=== PATIENT | female | born 1975 | race Caucasian/White ===

== ENCOUNTER 2017-12-13 20:05 | Emergency (ER) | payer MEDICAID ==
[~2017-12-13] VITALS: Ht 162.6 cm; Wt 97.1 kg
[2017-12-13 20:08] VITALS: Ht 162.6 cm; Wt 97.1 kg
[2017-12-13 21:54] VITALS: BP 150/85
== END 2017-12-13 21:54 | disposition home or self-care (01) ==
LOC: ED 20:05
DX: S61.210A Laceration without foreign body of right index finger without damage to nail, initial encounter (principal); R03.0 Elevated blood-pressure reading, without diagnosis of hypertension; W26.0XXA Contact with knife, initial encounter; Y93.89 Activity, other specified; Y92.89 Other specified places as the place of occurrence of the external cause; Y99.8 Other external cause status
CPT/HCPCS: 90715; J2001

== ENCOUNTER 2019-01-18 02:10 | Inpatient (IN) | payer MEDICAID ==
[~2019-01-18] VITALS: Ht 162.6 cm; Wt 94.0 kg
[2019-01-18 02:16] VITALS: Ht 162.6 cm; Wt 94.0 kg
[2019-01-18 02:43] LABS: BASOPHIL % 0.6 % (0-2); PLATELET COUNT 391 x10^3mcL (130-400)
[2019-01-18 02:46] LABS: RED CELL DISTRIBUTION WIDTH 21.7 % (11.5-14.5)
--- NOTE | 2019-01-18 02:49 | NUR ---
PATIENT AAOX4 PRESENTS TO THE ED WITH C/O ABD PAIN ALONG WITH N/V X 7 DAYS. BREATHING EVEN AND UNLABORED, PT DENIES FEVER, SKIN WARM, DRY AND INTACT. PT PLACED ON MONITORS FOR FURTHER OBSERVATION. WILL CONTINUE TO MONITOR.
[2019-01-18 02:54] LABS: rbc morphology (normal/abnorm) ABNORMAL (NORMAL); schistocyte (helmet cell) 1+; target cell (codocyte) 1+
[2019-01-18 02:59] LABS: CALCIUM 8.7 mg/dL (8.5-10.1); CARBON DIOXIDE 25.6 mmol/L (21-32); CHLORIDE SERUM 105 mmol/L (98-107); CREATININE SERUM 0.8 mg/dL (0.6-1.0); GFR1 > 60 mL/min; GLUCOSE SERUM 125 mg/dL (74-106); POTASSIUM SERUM 3.3 mmol/L (3.5-5.1); SODIUM SERUM 142 mmol/L (136-145)
[2019-01-18 03:04] LABS: ALKALINE PHOSPHATASE 115 U/L (46-116); ALT/SGPT 24 U/L (14-59); AST/SGOT 25 U/L (15-37); BILIRUBIN TOTAL 0.24 mg/dL (0.20-1.00); TOTAL PROTEIN, SERUM 7.6 g/dL (6.4-8.2)
[2019-01-18 03:05] LABS: ALBUMIN 3.2 g/dL (3.4-5.0); LIPASE 2607 IU/L (73-393)
--- NOTE | 2019-01-18 03:19 | NUR ---
MEDICATED PER MD ORDERS
[2019-01-18 04:59] LABS: microscopic required? NO
[2019-01-18 05:06] LABS: urine erythrocyte NEGATIVE (NEGATIVE)
[2019-01-18 05:39] VITALS: BP 150/82
[2019-01-18 05:39] LABS: CHOLESTEROL/HDL RATIO 3.7; MAGNESIUM 2.3 mg/dL (1.8-2.4); PHOSPHOROUS 3.9 mg/dL (2.5-4.9)
[2019-01-18 06:43] VITALS: BP 117/65
--- NOTE | 2019-01-18 06:45 | NUR ---
RECEIVED PT FROM ER VIA WHEEL CHAIR FROM ED. A/O X4. ESTONIAN SPEAKING. DENIES HEADACHE/DIZZINESS. RESP. EVEN AND UNLABORED. LUNG SOUNDS CLEAR BILAT. ON ROOM AIR, NO ACUTE DISTRESS NOTED. ABD. WITH COMPLAINTS OF ABD. PAIN XI WEEK,ABD. SOFT, NON DISTENDED, BS ACTIVE, NO N/V NOTED. PT STATES PAIN LEVEL,5/10, MEDICATED WITH NORCO PO ORDERED. NPO EXCEPT MEDS MAINTAINED. STARTED ON IVF, NS AT 150ML/HR, INTACT AND INFUSING VIA LT HAND. SKIN WARM AND DRY TO TOUCH, INTACT AND NO EDEMA NOTED. AMBULATORY. ORIENTED TO ROOM AND SURROUNDINGS. BED IN LOW POSITION. SPOUSE AT THE BEDSIDE. CALL LIGHT WITHIN REACH. AFEBRILE AND VITAL SIGNS STABLE. WILL ENDORSE TO INCOMING NURSE.
--- NOTE | 2019-01-18 07:25 | NUR ---
AAO X4.[place]EN[place] MOSTLY.DENIES ANY PAIN/DISCOMFORT.LUNGS CLEAR.PT NON-TELE.IVF NS GOING AT 150 ML/HR INFUSING WELL.ON NPO STATUS TILL SEEN BY . AT BEDSIDE.CALL LIGHT WITHIN REACH.INSTRUCTED TO CALL FOR ANY PAIN/DISCOMFORT.WILL CONTINUE TO MONITOR PT.
[2019-01-18 09:29] VITALS: BP 134/71
[2019-01-18 10:20] LABS: FREE T4 0.9 ng/dL (0.76-1.46)
--- NOTE | 2019-01-18 11:30 | NUR ---
HERE TO SEE PT.PT WILL HAVE LAP THIAGO POSSIBLE OPEN.SIGNED CONSENT.USED TOOL PROFILING MACHINE SET UP OPERATOR PHONE.PT AGREEABLE TO THE PROCEDURE.PRE-OP CHECKLIST DONE.
--- NOTE | 2019-01-18 12:03 | NUR ---
PT WENT DOWN TO SURGERY VIA GUERNEY ACCOMPANIED BY OR DAYANARA, AT BEDSIDE.
--- NOTE | 2019-01-18 14:15 | NUR ---
GAVE MORPHINE 2 MG IVP ORDERED PTN FOR C/O INCISSIONANL PAIN AT 9/10 PAIN SCALE.
--- NOTE | 2019-01-18 14:18 | NUR ---
PT BACK FR.RECOVERY ROOM S/P LAP THIAGO. ABDOMINAL INCISSION X4.CALL LIGHT WITHIN REACH.C/O MILD INCISSIONAL PAIN .V/S STABLE.FAMILY AT BEDSIDE.WILL CONTINUE TO MONITOR PT.
[2019-01-18 14:20] VITALS: BP 119/73
--- NOTE | 2019-01-18 16:09 | NUR ---
GAVE ZOFRAN 4 MG IVP FOR C/O VOMITTING X 1.WILL CONTINUE TO MONITOR PT.
--- NOTE | 2019-01-18 16:12 | NUR ---
GAVE PT MORPHINE 2 MG IVP ORDERED FOR C/O INCISSIONAL PAIN AT 9/10 PAIN SCALE.WILL CONTINUE TO MONITOR PT.
--- NOTE | 2019-01-18 16:42 | NUR ---
RECHECKED PAIN LEVEL.CLAIMS TO FEEL A LOT BETTER.ALSO DENIES ANY NAUSEA.
[2019-01-18 17:08] VITALS: BP 117/75
--- NOTE | 2019-01-18 17:11 | NUR ---
Discount pharmacy card and list to low cost medical clinics given to patient by Param Meredith.
--- NOTE | 2019-01-18 18:27 | NUR ---
NO SIGNIFICANT CHANGE NOTED.WILL ENDORSE TO NEXT SHIFT.
[2019-01-18 20:27] VITALS: BP 159/84
--- NOTE | 2019-01-18 21:00 | NUR ---
PATIENTWITH FAMILY MEMBER,MAINLY KHMER,NEEDS ANTICIPATED.IVF INFUSING.
--- NOTE | 2019-01-18 21:18 | NUR ---
SHIFT REASSESSMENT DONE.PATIENT ALERT AND ORIENTED,MAINLY [place],NEEDS ANTICIPATED.NS AT 60 CC/ HOUR L HAND IV SITE.MEDSURG PATIENT.HAD LAP THIAGO,01/18,ABD BANDAID INTACT.VOIDING.FAMILY AT BEDSIDE,SUPPORTIVE OF CARE.CALL LIGHT IN REACH.ATB SCHEDULED.
--- NOTE | 2019-01-19 02:00 | NUR ---
PATIENT WANTING PAIN SHOT AND GIVEN.IVF INFUSING.BRP,NOT PASSING GAS YET.
[2019-01-19 06:27] VITALS: BP 132/78
[2019-01-19 06:41] LABS: PLATELET COUNT 356 x10^3mcL (130-400)
[2019-01-19 06:50] LABS: RED CELL DISTRIBUTION WIDTH 21.1 % (11.5-14.5)
[2019-01-19 06:55] LABS: CALCIUM 8.2 mg/dL (8.5-10.1); CARBON DIOXIDE 25.1 mmol/L (21-32); CHLORIDE SERUM 105 mmol/L (98-107); CREATININE SERUM 0.7 mg/dL (0.6-1.0); GFR1 > 60 mL/min; GLUCOSE SERUM 120 mg/dL (74-106); PHOSPHOROUS 3.1 mg/dL (2.5-4.9); POTASSIUM SERUM 3.7 mmol/L (3.5-5.1); SODIUM SERUM 139 mmol/L (136-145)
--- NOTE | 2019-01-19 07:55 | NUR ---
RECEIVED PATIENT SLEEPING IN BED, AROUSABLE. PATIENT DENIES PAIN AT THIS TIME. PATIENT DENIES NAUSEA/VOMITING. PATIENT HAS NOT PASSED GAS OR BM AT THIS TIME. BANDAID TO ABDOMEN X4, CDI & NO DRAINAGED NOTED. NS IV INFUSING TO LEFT HAND CDI&PATENT, NO S/S OF INFILTRATION. CALL LIGHT WITIHN REACH, BED IN LOW POSITION, WILL CONTINUE TO MONITOR FOR CHANGES.
[2019-01-19 08:15] LABS: rbc morphology (normal/abnorm) ABNORMAL (NORMAL)
[2019-01-19 09:48] VITALS: BP 154/88
--- NOTE | 2019-01-19 10:27 | NUR ---
PATIENT C/O ABDOMINAL PAIN 12/14, MEDICATED PATIENT WITH NORCO PER PROTOCAL (SEE EMAR), REPOSITIONED PATIENT FOR COMFORT. EDUCATED PATIENT ON PAIN MANAGEMEN, PATIENT VERBALIZES UNDERSTANDING. CALL LIGHT WITHIN REACH, WILL CONTINUE TO MONITOR PATIENT.
--- NOTE | 2019-01-19 14:33 | NUR ---
PATIENT C/O SEVERE PAIN 02/13 TO ABDOMEN, MEDICATED PATIENT WITH MORPHINE PER PROTOCAL (SEE EMAR). PATIENT REPOSITIONED FOR COMFORT, WILL CONTINUE TO MONITOR, CALL LIGHT WITHIN REACH.
--- NOTE | 2019-01-19 18:00 | NUR ---
PATIENT IS SLEEPING IN BED, FAMILY AT BEDSIDE. NO ACUTE DISTRESS NOTED. NO ACUTE CHANGES NOTED THROUGH OUT SHIFT, PATIENT IS STABLE. DRESSING TO ABD, CDI & NO DRAINAGE NOTED. NS IV INFUSING TO LH AT 60ML/HR, NO S/S OF INFILTRATION. CALL LIGHT WITHIN REACH, BED IN LOW POSITION. WILL ENDORSE REPORT TO NIGHT NURSE.
[2019-01-19 18:09] VITALS: BP 143/78
--- NOTE | 2019-01-19 20:22 | NUR ---
PATIENT RECEIVED AWAKE, ALERT, ORIENTED X3 IN BED. FAMILY MEMBER AT THE BEDSIDE. RESPIRATION EVEN AND UNLABORED, ON ROOM AIR. ONGOING 0.9% NS AT 60 CC/HR INFUSING WELL AT THE LEFT HAND. S/P LAP THIAGO 01/18/2019. SURGICAL INCISIONS X4 WITH SUTURES TO ABDOMEN COVERED WITH BANDAIDS. VOIDING FREELY WITHOUT DIFFICULTY. MOVES ALL EXTREMITIES FREELY. DENIES PAIN AT THIS TIME. WILL CONTINUE TO MONITOR.
--- NOTE | 2019-01-19 21:08 | NUR ---
PATIENT COMPLAINED OF INCISIONAL PAIN- ABDOMEN, 02/13. MEDICATED WITH NORCO 7.5/325 MG PO ORDERED. WILL CONTINUE TO MONITOR.
[2019-01-19 21:29] VITALS: BP 134/75
--- NOTE | 2019-01-20 03:19 | NUR ---
PATIENT COMPLAINED OF INCISIONAL PAIN- ABDOMEN, 02/13. MEDICATED WITH NORCO 7.5/325 MG PO ORDERED. WILL CONTINUE TO MONITOR.
[2019-01-20 06:03] VITALS: BP 127/77
--- NOTE | 2019-01-20 06:03 | NUR ---
PATIENT RESTING IN BED. RESPIRATION EVEN AND UNLABORED, ON ROOM AIR. DENIES PAIN AT THIS TIME. IV SITE NO SIGN OF INFILTRATION. SURGICAL INCISION- ABDOMEN DRY AND INTACT. ON CLEAR LIQUID DIET. ASSISTED WITH NEEDS. SAFETY OBSERVED. PLACED CALL LIGHT WITHIN REACH AT ALL TIMES. PLACED BED IN THE LOWEST POSITION.
[2019-01-20 06:32] LABS: CALCIUM 8.1 mg/dL (8.5-10.1); CARBON DIOXIDE 26.4 mmol/L (21-32); CHLORIDE SERUM 106 mmol/L (98-107); CREATININE SERUM 0.7 mg/dL (0.6-1.0); GFR1 > 60 mL/min; GLUCOSE SERUM 107 mg/dL (74-106); MAGNESIUM 2.1 mg/dL (1.8-2.4); PHOSPHOROUS 2.8 mg/dL (2.5-4.9); POTASSIUM SERUM 3.2 mmol/L (3.5-5.1); SODIUM SERUM 141 mmol/L (136-145)
[2019-01-20 06:34] LABS: PLATELET COUNT 353 x10^3mcL (130-400)
[2019-01-20 06:50] LABS: RED CELL DISTRIBUTION WIDTH 21.6 % (11.5-14.5)
--- NOTE | 2019-01-20 07:09 | NUR ---
RECEIVED PT FROM [facility] SHIFT NURSE. PT RESTING IN BED, AOX4, RESP E/U ON RA. DENIES PAIN TO ABD AT THIS TIME, S/P LAP THIAGO. IV TO L HAND W/ NO SIGNS OF INFILTRATION, IVF INFUSING WELL. BED IN LOWEST POSITION AND CALL LIGHT WITHIN REACH. WILL CONTINUE TO MONITOR.
[2019-01-20 09:04] VITALS: BP 150/80
[2019-01-20 13:02] LABS: BAND NEUTROPHIL 0 % (0-10); BASOPHIL 0 % (0-2); MONOCYTE 1 % (0-7); SEGMENTED NEUTROPHILS 86 % (37-75)
[2019-01-20 13:03] LABS: PLATELET MORPHOLOGY PLATELETS NORMAL; rbc morphology (normal/abnorm) ABNORMAL (NORMAL)
--- NOTE | 2019-01-20 13:19 | NUR ---
PT IN BED HAVING LUNCH, AOX4, RESP E/U ON RA. C/O ABD PAIN TO SUGRICAL SITE RATED 8/10. MEDICATED ORDERED PER EMAR, DENIES N/V. BED IN LOWEST POSITION AND CALL LIGHT WITHIN REACH. WILL CONTINUE TO MONITOR.
[2019-01-20 17:35] VITALS: BP 133/82
--- NOTE | 2019-01-20 18:07 | NUR ---
PT RESTING IN BED, AOX4, RESP E/U ON RA. C/O ABD PAIN TO SURGICAL SITE RATED 7/10, MEDICATED ORDERED PER EMAR. DENIES N/V, TOLERATING FULL LIQUID DIET WELL. BANDAGES X4 TO ABD INCISIONS CDI. IV TO RFA W/ NO SIGNS OF INFILTRATION, IVF INFUSING WELL. BED IN LOWEST POSITION AND CALL LIGHT WITHIN REACH. WILL ENDORSE TO ONCOMING NURSE.
--- NOTE | 2019-01-20 19:19 | NUR ---
RECEIVED PT FROM PREVIOUS SHIFT. PT A/OX4. DENIES SOB ON RA. IV PATENT AND INFUSING WELL WITH NO S/S OF INFILTRATION. CALL LIGHT WITHIN REACH, BED IN LOW POSITION. FAMILY AT BEDSIDE. WILL CONTINUE TO MONITOR.
[2019-01-20 19:33] VITALS: BP 118/79
--- NOTE | 2019-01-21 00:01 | NUR ---
PT RESTING IN NO ACUTE DISTRESS. RR EVEN AND UNLABORED. CALL LIGHT WITHIN REACH, BED IN LOW POSITION. WILL CONTINUE TO MONITOR.
[2019-01-21 05:03] VITALS: BP 144/71
--- NOTE | 2019-01-21 07:03 | NUR ---
RECEIVED PT FROM CONCRETE [employer]US[employer] LOADER OPERATOR NURSE. PT IN BED SLEEPING, AROUSABLE, RESP E/U ON RA. NO ACUTE DISTRESS NOTED. IV TO RFA W/ NO SIGNS OF INFILTRATION, IVF INFUSING WELL. BED IN LOWEST POSITION AND CALL LIGHT WITHIN REACH. WILL CONTINUE TO MONITOR.
[2019-01-21 07:18] LABS: CALCIUM 8.7 mg/dL (8.5-10.1); CARBON DIOXIDE 29.9 mmol/L (21-32); CHLORIDE SERUM 105 mmol/L (98-107); CREATININE SERUM 0.7 mg/dL (0.6-1.0); GFR1 > 60 mL/min; GLUCOSE SERUM 104 mg/dL (74-106); MAGNESIUM 2.1 mg/dL (1.8-2.4); POTASSIUM SERUM 3.5 mmol/L (3.5-5.1); SODIUM SERUM 141 mmol/L (136-145)
[2019-01-21 07:26] LABS: BILIRUBIN DIRECT 0.09 mg/dL (0.0-0.2); BILIRUBIN TOTAL 0.3 mg/dL (0.20-1.00); TOTAL PROTEIN, SERUM 7.4 g/dL (6.4-8.2)
[2019-01-21 07:33] LABS: ALBUMIN 3.1 g/dL (3.4-5.0)
[2019-01-21 08:57] LABS: PLATELET COUNT 459 x10^3mcL (130-400); RED CELL DISTRIBUTION WIDTH 21.5 % (11.5-14.5)
[2019-01-21 09:09] VITALS: BP 136/79
--- NOTE | 2019-01-21 09:30 | NUR ---
LAB CALLED FOR WBC 13.8. LUIS ENRIQUE ABRAHAM MADE AWARE. NO NEW ORDERS AT THIS TIME.
[2019-01-21] MEDS ORDERED: FER300 PO (10:27)
[2019-01-21] MEDS ORDERED: TOR10 PO (10:31)
[2019-01-21] MEDS ORDERED: CIPRO250 MG PO (10:32)
[2019-01-21] MEDS ORDERED: SYN88 PO (10:36)
--- NOTE | 2019-01-21 11:53 | NUR ---
PT RESTING IN BED, AOX4, RESP E/U ON RA. PT C/O OF MILD PAIN TO ABD BUT TOLERABLE. NO REQUEST FOR PAIN MEDS AT THIS TIME. DENIES N/V. BED IN LOWEST POSITION AND CALL LIGHT WITHIN REACH. WILL CONTINUE TO MONITOR.
[2019-01-21 13:45] LABS: BAND NEUTROPHIL 0 % (0-10); BASOPHIL 0 % (0-2); MONOCYTE 5 % (0-7); PLATELET MORPHOLOGY PLATELETS INCREASED; SEGMENTED NEUTROPHILS 79 % (37-75); rbc morphology (normal/abnorm) ABNORMAL (NORMAL); target cell (codocyte) 1+
[2019-01-21 15:27] VITALS: BP 136/79
--- NOTE | 2019-01-21 16:29 | NUR ---
PT DISCHARGED. REVIEWED VISIT SUMMARY, EDUCATIONAL PACKET, RX MEDS AND FOLLOW UP INCTRUCTIONS W/ PT. PT AOX4, RESP E/U, VS STABLE, DENIES PAIN AT THIS TIME. IV TO RFA REMOVED, CATH INTAC, GAUZE DRESSING APPLIED. PT AMBULATORY TO DISCHARGE OFFICE, ESCORTED BY DAUGHTER AND RN JACQUI W/ NO ACUTE INCIDENCE.
== END 2019-01-21 16:29 | disposition home or self-care (01) | DRG 263 ==
LOC: ED 02:10 → MU 04:41
PROVIDERS: Emergency Medicine; Internal Medicine; Internal Medicine Gastroenterology; Surgery; ADMIT Internal Medicine
PROC: 0FT44ZZ Resection of Gallbladder, Percutaneous Endoscopic Approach (ICD-10-PCS; principal; 2019-01-18 12:30)
DX: K85.10 Biliary acute pancreatitis without necrosis or infection (principal); K80.10 Calculus of gallbladder with chronic cholecystitis without obstruction; D72.829 Elevated white blood cell count, unspecified; E87.6 Hypokalemia; Z68.35 Body mass index [BMI] 35.0-35.9, adult
CPT/HCPCS: 83880; 84439; G0378; J0330; J0690; J1100; J1170; J1885; J2175; J2250; J2270; J2405; J2543; J2704; J2710; J2916; J3010; J3480; J3490; J7030; J7120; Q0092; Q0162

== ENCOUNTER 2020-07-04 01:03 | Emergency (ER) | payer MEDICAID, SELFPAY ==
[~2020-07-04] VITALS: Ht 162.6 cm; Wt 74.8 kg
[~2020-07-04 01:03] MED LIST: CIPRO250 MG PO; FER300 PO; SYN88 PO; TOR10 PO
[2020-07-04 01:05] VITALS: BP 193/104; Ht 162.6 cm; Wt 74.8 kg
== END 2020-07-04 04:20 | disposition left against medical advice (07) ==
LOC: ED 01:03
DX: Z53.21 Procedure and treatment not carried out due to patient leaving prior to being seen by health care provider (principal)
CPT/HCPCS: U0003